=== PATIENT | male | born 1935 | race Caucasian/White ===

== ENCOUNTER → 2024-02-28 09:34 | Outpatient (REF) | payer MEDICARE, OTHER, SELFPAY ==
[2024-02-28 10:55] LABS: C-Reactive Protein < 5.00 mg/L (0.0-10.00)
[2024-03-01 17:11] LABS: SSA 52 (Ro)(ENA) Ab, IgG 15 AU/mL (0-40); SSA 60 (Ro)(ENA) Ab, IgG 0 AU/mL (0-40); SSB (La)(ENA) Ab, IgG 0 AU/mL (0-40)
== END ==
LOC: REG 09:34
PROVIDERS: ATTENDING PHYSICIAN Psychiatry & Neurology Neurology; FAMILY PHYSICIAN Family Medicine
DX: R26.9 Unspecified abnormalities of gait and mobility (principal)
CPT/HCPCS: 36415; 86041; 86140; 86235

== ENCOUNTER → 2024-03-03 07:54 | Outpatient (REF) | payer MEDICARE, OTHER, SELFPAY ==
[2024-03-03 09:00] LABS: Urine Albumin 1+ (Neg - Trace); Urine Bilirubin Negative (Negative); Urine Character Clear (Clear); Urine Color Yellow; Urine Glucose 3+ (Negative); Urine Ketone Negative (Negative); Urine Leukocyte Negative (Negative); Urine Nitrite Negative (Negative); Urine Occult Blood Negative (Negative); Urine Specific Gravity 1.015 (<1.030); Urine Urobilinogen Negative (Neg - 1+)
[2024-03-03 09:01] LABS: % Basophils 0.5 % (0-2); % Eosinophils 2.9 % (0-6); % Immature Granulocytes 0.7 % (0-0.5); % Lymphocytes 22.1 % (20.5-51.1); % Monocytes 11.5 % (1.7-9.3); % Neutrophils 62.3 % (42.2-75.2); Absolute Eosinophils 0.2 10^3/uL (0-0.7); Absolute Immature Granulocytes 0.1 10^3/uL (0-0.05); Absolute Lymphocytes 1.7 10^3/uL (1.2-3.4); Absolute Monocytes 0.9 10^3/uL (0.1-0.6); Absolute Neutrophils 4.8 10^3/uL (1.4-6.5); Hematocrit 41.6 % (39.0-52.0); Hemoglobin 13.4 g/dL (13.0-18.0); Mean Corp Hgb Conc. 32.2 g/dL (33.0-37.0); Mean Corpuscular Hgb 30.2 pg (27.0-31.0); Mean Corpuscular Volume 93.9 fL (80.0-94.0); Mean Platelet Volume 10.2 fL (7.4-10.4); Nucleated Red Blood Cells % 0 % (-); Platelet Count 209 10^3/uL (130-400); Red Blood Cell Count 4.43 10^6/uL (4.70-6.10); Red Cell Dist. Width 15.3 % (11.5-14.5); White Blood Cell Count 7.6 10^3/uL (4.8-10.8)
[2024-03-03 09:58] LABS: Glycohemoglobin (HgbA1c) 6.9 % (4.0-5.6)
[2024-03-03 10:22] LABS: ALT (SGPT) 19 U/L (0-50); AST (SGOT) 23 U/L (17-59); Alkaline Phosphatase 65 U/L (38-126); Blood Urea Nitrogen 36 mg/dl (9-20); Calcium 9.8 mg/dl (8.4-10.2); Carbon Dioxide 22 mmol/L (22-30); Chloride 104 mmol/L (98-107); Creatine Phosphokinase 33 U/L (55-170); Glucose 132 mg/dl (70-99); HDL Cholesterol 58 mg/dl; LDL Cholesterol, Calculated 57 mg/dl; Potassium 4.4 mmol/L (3.5-5.1); Sodium 134 mmol/L (135-145); Total Bilirubin 0.4 mg/dl (0.2-1.3); Total Cholesterol 142 mg/dl (50-199); Total Protein 6.4 g/dl (6.3-8.2); Triglyceride 137 mg/dl (10-149); Uric Acid 4.1 mg/dl (3.5-8.5); Very Low Density Lipoprotein 27 mg/dl (0-30); eGFR > 60.00
[2024-03-03 10:47] LABS: PSA, Total - Screen 1.51 ng/ml (0.0-4.0); TSH Reflex To Free T4 1.88 uIU/ml (0.47-4.68)
[2024-03-03 11:14] LABS: Urine Red Blood Cell None Seen /HPF (0-2); Urine Squamous Cell 0-2 /LPF (Few); Urine White Cell 0-2 /HPF (0-5)
== END ==
LOC: REG 07:54
PROVIDERS: ATTENDING PHYSICIAN Family Medicine
DX: Z90.5 Acquired absence of kidney (principal); M1A.9XX0 Chronic gout, unspecified, without tophus (tophi); E78.2 Mixed hyperlipidemia; E03.8 Other specified hypothyroidism; E11.42 Type 2 diabetes mellitus with diabetic polyneuropathy; R29.898 Other symptoms and signs involving the musculoskeletal system; Z12.5 Encounter for screening for malignant neoplasm of prostate
CPT/HCPCS: 36415; 80053; 80061; 81003; 81015; 82550; 83036; 84443; 84550; 85025; G0103

== ENCOUNTER 2024-03-14 08:11 | Outpatient (RCR) | payer MEDICARE, OTHER, SELFPAY | END 2024-03-14 23:59 | disposition home or self-care (01) | LOC: RPT 08:11 | PROVIDERS: ATTENDING PHYSICIAN Psychiatry & Neurology Neurology; FAMILY PHYSICIAN Family Medicine | DX: R26.89 Other abnormalities of gait and mobility (principal); Z73.6 Limitation of activities due to disability; R26.2 Difficulty in walking, not elsewhere classified | CPT/HCPCS: 97110; 97162 ==

== ENCOUNTER 2024-04-13 09:51 | Outpatient (RCR) | payer MEDICARE, OTHER, SELFPAY | END 2024-04-13 23:59 | disposition home or self-care (01) | LOC: RPT 09:51 | PROVIDERS: ATTENDING PHYSICIAN Psychiatry & Neurology Neurology; FAMILY PHYSICIAN Family Medicine | DX: R26.89 Other abnormalities of gait and mobility (principal); Z73.6 Limitation of activities due to disability; Z91.81 History of falling | CPT/HCPCS: 97110; 97112 ==

== ENCOUNTER 2024-05-15 09:30 | Outpatient (RCR) | payer MEDICARE, OTHER, SELFPAY | END 2024-05-15 12:15 | disposition home or self-care (01) | LOC: RPT 09:30 | PROVIDERS: ATTENDING PHYSICIAN Psychiatry & Neurology Neurology; FAMILY PHYSICIAN Family Medicine | DX: R26.89 Other abnormalities of gait and mobility (principal); Z73.6 Limitation of activities due to disability | CPT/HCPCS: 97110; 97112 ==

== ENCOUNTER → 2024-06-15 06:28 | Outpatient (REF) | payer MEDICARE, OTHER, SELFPAY ==
[2024-06-15 07:02] LABS: Hematocrit 42.6 % (39.0-52.0); Mean Corp Hgb Conc. 32.9 g/dL (33.0-37.0); Mean Corpuscular Hgb 29.2 pg (27.0-31.0); Mean Corpuscular Volume 88.8 fL (80.0-94.0); Platelet Count 215 10^3/uL (130-400); Red Cell Dist. Width 16.2 % (11.5-14.5); White Blood Cell Count 6.9 10^3/uL (4.8-10.8)
[2024-06-15 07:31] LABS: ALT (SGPT) 18 U/L (0-50); AST (SGOT) 24 U/L (17-59); Albumin 4.4 g/dl (3.5-5.0); Alkaline Phosphatase 65 U/L (38-126); Blood Urea Nitrogen 40 mg/dl (9-20); Calcium 10.1 mg/dl (8.4-10.2); Carbon Dioxide 26 mmol/L (22-30); Chloride 103 mmol/L (98-107); Glucose 124 mg/dl (70-99); HDL Cholesterol 48 mg/dl; LDL Cholesterol, Calculated 51 mg/dl; Potassium 4.7 mmol/L (3.5-5.1); Sodium 137 mmol/L (135-145); Total Bilirubin 0.5 mg/dl (0.2-1.3); Total Cholesterol 122 mg/dl (50-199); Total Protein 6.7 g/dl (6.3-8.2); Triglyceride 118 mg/dl (10-149); Very Low Density Lipoprotein 23 mg/dl (0-30); eGFR 58.53
[2024-06-15 08:03] LABS: TSH Reflex To Free T4 2.64 uIU/ml (0.47-4.68)
[2024-06-15 11:03] LABS: Glycohemoglobin (HgbA1c) 6.7 % (4.0-5.6)
== END ==
LOC: REG 06:28
PROVIDERS: ATTENDING PHYSICIAN Family Medicine
DX: N39.46 Mixed incontinence (principal); E11.9 Type 2 diabetes mellitus without complications; Z00.00 Encounter for general adult medical examination without abnormal findings; I25.10 Atherosclerotic heart disease of native coronary artery without angina pectoris; E03.9 Hypothyroidism, unspecified; E78.2 Mixed hyperlipidemia; G47.00 Insomnia, unspecified; E78.00 Pure hypercholesterolemia, unspecified
CPT/HCPCS: 36415; 80053; 80061; 81003; 81015; 83036; 84443; 85027

== ENCOUNTER → 2024-07-12 07:24 | Outpatient (REF) | payer MEDICARE, OTHER, SELFPAY | LOC: EMG 07:24 | PROVIDERS: ATTENDING PHYSICIAN Psychiatry & Neurology Neurology; FAMILY PHYSICIAN Family Medicine | DX: R26.9 Unspecified abnormalities of gait and mobility (principal); R20.0 Anesthesia of skin | CPT/HCPCS: 95886; 95912 ==

== ENCOUNTER 2024-09-20 13:43 | Outpatient (RCR) | payer MEDICARE, OTHER, SELFPAY | END 2024-09-20 23:59 | disposition home or self-care (01) | LOC: RPT 13:43 | PROVIDERS: ATTENDING PHYSICIAN Specialist; FAMILY PHYSICIAN Family Medicine | DX: N39.41 Urge incontinence (principal); Z73.6 Limitation of activities due to disability | CPT/HCPCS: 97110; 97161; 97530 ==

== ENCOUNTER → 2024-09-27 10:00 | Outpatient (REF) | payer MEDICARE, OTHER, SELFPAY | LOC: EMG 10:00 | PROVIDERS: ATTENDING PHYSICIAN Psychiatry & Neurology Neurology; FAMILY PHYSICIAN Family Medicine | DX: R26.9 Unspecified abnormalities of gait and mobility (principal); R20.0 Anesthesia of skin | CPT/HCPCS: 95886; 95908 ==

== ENCOUNTER 2024-10-13 11:20 | Outpatient (RCR) | payer MEDICARE, OTHER, SELFPAY | END 2024-10-13 13:14 | disposition home or self-care (01) | LOC: RPT 11:20 | PROVIDERS: ATTENDING PHYSICIAN Specialist; FAMILY PHYSICIAN Family Medicine | DX: N39.41 Urge incontinence (principal); Z73.6 Limitation of activities due to disability; R15.2 Fecal urgency; M62.81 Muscle weakness (generalized); R26.89 Other abnormalities of gait and mobility | CPT/HCPCS: 97110; 97530 ==

== ENCOUNTER 2024-10-24 01:23 | Inpatient (IN) | payer MEDICARE, OTHER, SELFPAY ==
[2024-10-23] VITALS (8 sets, daily range): BP systolic 90–107; BP diastolic 39–63; BMI 25.4
[2024-10-23 17:42] LABS: % Basophils 0.2 % (0-2); % Eosinophils 1.6 % (0-6); % Immature Granulocytes 0.6 % (0-0.5); % Lymphocytes 2.7 % (20.5-51.1); % Monocytes 8.4 % (1.7-9.3); % Neutrophils 86.5 % (42.2-75.2); Absolute Eosinophils 0.2 10^3/uL (0-0.7); Absolute Immature Granulocytes 0.1 10^3/uL (0-0.05); Absolute Lymphocytes 0.4 10^3/uL (1.2-3.4); Absolute Monocytes 1.3 10^3/uL (0.1-0.6); Mean Corp Hgb Conc. 34.9 g/dL (33.0-37.0); Mean Corpuscular Hgb 30.9 pg (27.0-31.0); Mean Corpuscular Volume 88.7 fL (80.0-94.0); Mean Platelet Volume 9.7 fL (7.4-10.4); Nucleated Red Blood Cells % 0 % (-); Platelet Count 168 10^3/uL (130-400); Red Blood Cell Count 4.85 10^6/uL (4.70-6.10); Red Cell Dist. Width 15.8 % (11.5-14.5)
[2024-10-23 17:49] LABS: ALT (SGPT) 22 U/L (0-50); AST (SGOT) 28 U/L (17-59); Albumin 3.7 g/dl (3.5-5.0); Alkaline Phosphatase 68 U/L (38-126); Blood Urea Nitrogen 32 mg/dl (9-20); Carbon Dioxide 21 mmol/L (22-30); Chloride 93 mmol/L (98-107); Glucose 168 mg/dl (70-99); Potassium 4.4 mmol/L (3.5-5.1); Sodium 127 mmol/L (135-145); Total Bilirubin 0.5 mg/dl (0.2-1.3); Total Protein 6.2 g/dl (6.3-8.2); eGFR 58.53
[2024-10-23 17:54] LABS: COVID-19 Antigen Negative (Negative)
[2024-10-23] MEDS: TYLENOL 1000 MG PO (20:11)
[2024-10-23] MEDS: NSS 1000 IV (20:11)
[2024-10-23 20:40] LABS: Lactic Acid 1.4 mmol/L (0.7-2.0)
--- NOTE | 2024-10-23 20:52 | ED.GENMED ---
History of Present Illness
General
Chief Complaint: Fever
Time Seen by Provider: 10/23/24 19:14
History of Present Illness
History of Present Illness:
88-year-old male with history of diabetes, CAD, hyperlipidemia presenting for weakness and fever. Patient presents with daughter who lives with him. He had an unwitnessed fall earlier this morning, found on the ground and patient could not get up.
For the past 3 days patient has been running a fever, over 103 today. He had Tylenol earlier this afternoon. Patient himself without specific complaints. Denies chest pain, difficulty breathing, cough. No known sick contacts, however was around
a lot of family for Thanksgiving and has had some loose stools. Denies abdominal pain or vomiting. Denies urinary complaints. He is unsure whether or not he struck his head when he fell, is not on blood thinners. Denies additional acute medical
complaints
Past History
Past History
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
ED Past Surgical History: Cardiac (Coronary bypass graft), Orthopedic (Right shoulder surgery, bilateral rotator cuff repair, leg surgery), Urological (Right nephrectomy due to benign mass) and Other (Adrenal tumor removed, )
Social History
Tobacco: Former smoker
Alcohol: None
Drug: None
Personal:
Living: with family
Family History
Family History: Other (Reviewed and noncontributory)
Phy Exam
Physical Exam
Physical Exam:
General: Well-appearing, no clinical signs of dehydration, nontoxic and in no acute distress
HEENT: protecting airway
Neck: appears supple
CV: Normal heart rate, regular rhythm
Resp: No accessory muscle use, no increased work of breathing, lungs clear to auscultation bilaterally
Abd: Soft and non-distended, no tenderness to palpation
Extremities: No deformities, no swelling, no erythema
Neuro: alert, no focal neurologic deficit
: deferred
Rectal: deferred
Psych: Normal affect
Skin: Intact
Course
Orders/Labs/Results
Orders:
Orders
10/23/24 17:08
Electrocardiogram (*1) Urgent
Reason for Study: Shortness of Breath
EKG- Treatment ONCE
10/23/24 17:22
COVID-19 Antigen Urgent
Source: Nasal Swab
Complete Blood Count/With Diff Urgent
Comprehensive Metabolic Panel Urgent
Influenza A+B Rapid Molecular Urgent
JAKOB Source: Nasal Swab
Specimen Description:
10/23/24 19:52
0.9% Sodium Chloride 1000 ml [Nss] 1,000 ml IV BOLUS
Acetaminophen [Tylenol] 1,000 mg PO NOW STA
10/23/24 19:53
CR Chest - 2 Views Urgent
Comment:
Reason For Exam: fever
10/23/24 19:54
CT Head W/o Iv Contrast Urgent
Comment:
Reason For Exam: unwitnessed fall
10/23/24 20:21
Lactic Acid Q4H
Comment: CANCEL 2nd LACTIC ACID IF 1st LACTIC ACID IS LESS THAN 2
10/23/24 20:22
Blood Culture Q30M
JAKOB Source: Blood/Venous
Specimen Description:
Blood Culture Q30M
JAKOB Source: Blood/Venous
Specimen Description:
10/23/24 20:58
Urinalysis Reflex To Culture Urgent
10/24/24 00:00
Lactic Acid Q4H
Comment: CANCEL 2nd LACTIC ACID IF 1st LACTIC ACID IS LESS THAN 2
Abnormal Lab Results
10/23/24
17:22
WBC 15.0 H 10^3/uL
(4.8-10.8)
RDW 15.8 H %
(11.5-14.5)
Abs Immat Gran (auto) 0.1 H 10^3/uL
(0-0.05)
Absolute Neuts (auto) 13.0 H 10^3/uL
(1.4-6.5)
Absolute Lymphs (auto) 0.4 L 10^3/uL
(1.2-3.4)
Absolute Monos (auto) 1.3 H 10^3/uL
(0.1-0.6)
Immature Gran % 0.6 H %
(0-0.5)
Neutrophils % 86.5 H %
(42.2-75.2)
Lymphocytes % 2.7 L %
(20.5-51.1)
Sodium 127 L mmol/L
(135-145)
Chloride 93 L mmol/L
(98-107)
Carbon Dioxide 21 L mmol/L
(22-30)
BUN 32 H mg/dl
(9-20)
Glucose 168 H mg/dl
(70-99)
Total Protein 6.2 L g/dl
(6.3-8.2)
10/23/24 17:22
10/23/24 17:22
Vital Signs
Initial and Last Documented VS:
Initial Vital Signs
Temp Pulse Resp BP Pulse Ox
98.3 F 82 16 98/63 94
10/23/24 17:03 10/23/24 17:03 10/23/24 17:03 10/23/24 17:03 10/23/24 17:03
Last Documented Vital Signs
Temp Pulse Resp BP Pulse Ox
99.5 F 79 19 102/43 94
10/23/24 19:00 10/23/24 20:15 10/23/24 20:15 10/23/24 20:00 10/23/24 20:00
MDM/Problems Addressed
MDM/Problems Addressed:
88-year-old male with history of CAD, diabetes, hypertension presenting for weakness, fever, fall.
Vitals on arrival are significant for low-grade fever and low blood pressure. Symptoms concerning for systemic infection, meeting SIRS criteria. Patient had laboratory analysis obtained prior to my assessment, leukocytosis. Patient also with
hyponatremia, suspected dehydration. Unclear source of infection, patient without any specific complaints. Will add lactic acid, blood cultures, start IV fluids, Tylenol for fever. Will send urinalysis, chest x-ray. Unwitnessed fall, patient
unsure if he struck his head. Will plan for CT brain imaging as well
*EKG
Interpreted by ED Provider?: Yes
EKG Intrepretation Date: 10/23/24
EKG Intrepretation Time: 21:03
Interpretation: abnormal
Comparison EKG: changes noted
Heart Rate: 77
Rate: normal
Rhythm: sinus
Felt: left axis deviation
Interval: normal interval
QRS Pattern: left bundle branch block
Ischemia: non-specific ST changes
*Critical Care Note
Total Time (30-74mins, 75-104mins- exclusive of procedures): Not Applicable
ED Attending Note
-
Portions of this chart may have been created with voice recognition software.� Occasional wrong word or��sound alike� substitutions may have occurred due to the inherent limitations of voice recognition software.
Discharge Plan
Departure
Prescriptions:
No Action
allopurinol 100 MG tablet
100 mg PO BID
simvastatin 40 MG tablet
40 mg PO QPM
metformin 500 mg Tablet
500 mg PO BID
levothyroxine 50 mcg Tablet
50 mcg PO DAILY
aspirin 81 mg Tablet,Chewable
81 mg PO DAILY Qty: 30 0RF
carvedilol 12.5 mg Tablet
25 mg PO BID Qty: 60 0RF
multivitamin Tablet
1 tab PO DAILY
temazepam 30 mg Capsule
30 mg PO HS PRN (Reason: insomnia)
vitamin B complex [Super B Complex] Tablet
1 tab PO DAILY
lisinopril 5 mg Tablet
5 mg PO DAILY
Osteo Bi-Flex Triple Strength 750 mg-644 mg- 30 mg-1 mg Tablet
1 tab PO DAILY
Interventions
Interventions:
*Risk Screen - Suicide Last Done: 10/23/24 17:08
*Neglect/Abuse Screening Last Done: 10/23/24 17:08
ED- Neurological Assessment Last Done: 10/23/24 19:23
ED-Skin Assessment Last Done: 10/23/24 19:23
Discharge Date and Time
Print Language: CHILEAN
[2024-10-23 21:49] LABS: Urine Albumin 2+ (Neg - Trace); Urine Bilirubin Negative (Negative); Urine Character Clear (Clear); Urine Color Yellow; Urine Glucose 3+ (Negative); Urine Ketone Negative (Negative); Urine Leukocyte Negative (Negative); Urine Nitrite Negative (Negative); Urine Occult Blood Negative (Negative); Urine Specific Gravity 1.015 (<1.030); Urine Urobilinogen Negative (Neg - 1+)
[2024-10-23 22:28] LABS: Urine Amorphous Seen; Urine Bacteria Moderate (Negative); Urine Mucus Few; Urine Red Blood Cell 0-2 /HPF (0-2)
[2024-10-23] MEDS: ZOSYN 100 IV (22:39)
[2024-10-24] VITALS (20 sets, daily range): BP systolic 87–166; BP diastolic 47–94; BMI 24.4
--- NOTE | 2024-10-24 01:15 | HPS.HSE ---
Family Physician
-
Family Physician: Tyesha Mock
Chief Complaint
-
Fever, Weakness
History of Present Illness
Patient is an 88y M with PMH significant for ASCVD, DM-II and pulmonary fibrosis who presents to ED complaining of fever and weakness. Patient states that he has been having issues with unsteady gait and falling for some time now. He notes
specifically weakness in the RLE and states that he was recently found to have severe neuropathy / atrophy in the extremity. Over the past few days, patient has felt more weak than usual. He had a fever at home reportedly to 103 and presented to
the ED for evaluation.
Patient reports shortness of breath with activity - which is chronic and unchanged from his baseline.
He denies any sore throat, cough, abd pain, N/V/D or urinary complaints.
He denies any known sick contacts, recent travel, etc.
Medical History
Past Medical History
Past Medical History: Reports Other
Additional Past Medical History:
ASCVD
Hypertension
Ischemic Cardiomyopathy (LVEF = 35%)
DM-II with Neuropathy
Benign Renal Mass
Hypothyroidism
Gout
Pulmonary Fibrosis
Past Surgical History: Reports Other
Additional Past Surgical History:
CABG (2010)
Right Nephrectomy
RLE ORIF
Social History
Tobacco: Former Smoker (Quit 25 years ago. Approx 40 pack years total use.)
Alcohol: None
Drug: None
Family History
Family History: Other (Mother: CAD Father: CHF Brother: Lung Cancer)
Allergies / Home Medications
Allergies reflects when Allergies were last updated in [employer].
Home Medications with original date entered in [employer]
Allergy/Medication List:
Allergies
Allergy/AdvReac Type Severity Reaction Status Date / Time
No Known Allergies Allergy Verified 12/21/22 18:51
Home Medications
allopurinol 100 mg tablet 100 mg PO BID Gout 02/11/11
simvastatin 40 mg tablet 40 mg PO QPM High cholesterol 02/11/11
aspirin 81 mg chewable tablet 81 mg PO MOWEFR@1800 10/23/24
carvedilol 6.25 mg tablet 6.25 mg PO BID 10/23/24
cholecalciferol (vitamin D3) 25 mcg (1,000 unit) tablet (Vitamin D3) 25 mcg PO DAILY 10/23/24
empagliflozin 10 mg tablet (Jardiance) 10 mg PO DAILY 10/23/24
hydralazine 10 mg tablet 10 mg PO TID 10/23/24
isosorbide mononitrate 30 mg tablet,extended release 24 hr 30 mg PO DAILY 10/23/24
levothyroxine 75 mcg tablet 75 mcg PO DAILY 10/23/24
metformin 500 mg tablet,extended release 24 hr 500 mg PO TID 10/23/24
therapeutic multivitamin 1 tab PO DAILY 10/23/24
vibegron 75 mg tablet (Gemtesa) 75 mg PO DAILY 10/23/24
Review of Systems
-
History Source: Patient
A 12 point ROS was completed and negative except as noted: Yes
Constitutional: Reports Fever, Fatigue and Chills
EENT: Denies Sore Throat
Respiratory: Reports Trouble Breathing; Denies Cough
Cardiac: Denies Chest Pain or Palpitations
Abdomen/GI: Denies Abdominal Pain, Nausea, Vomiting or Diarrhea
: Denies Dysuria, Frequency or Flank Pain
Neurological: Reports Weakness; Denies Dizzy or Headache
Psych: Denies Depression or Anxiety
Physical Exam
Vital Signs
Vital Signs
Temp Pulse Resp BP Pulse Ox
99.5 F 79 19 102/43 94
10/23/24 19:00 10/23/24 20:15 10/23/24 20:15 10/23/24 20:00 10/23/24 20:00
Physical Exam
General: Other (88y M in no acute distress.)
HEENT: Moist mucous membranes and PERRLA
Respiratory: Other (bibasilar rales about 1/3 up. No wheeze / rhonchi.)
Cardiac: S1/S2, Regular Rhythm and Murmur (II/ ZEUS)
GI: Soft, Non Tender, Non Distended and Normal Bowel Sounds
Musculoskeletal: No Clubbing, No Cyanosis and No Edema
Neuro: Awake, Alert and Nonfocal/grossly intact
Laboratory Results
-
10/23/24 17:22
10/23/24 17:22
Laboratory Results
Lactic Acid 1.4 mmol/L (0.7-2.0) 10/23/24 20:21
Total Bilirubin 0.5 mg/dl (0.2-1.3) 10/23/24 17:22
AST 28 U/L (17-59) 10/23/24 17:22
ALT 22 U/L (0-50) 10/23/24 17:22
Alkaline Phosphatase 68 U/L (38-126) 10/23/24 17:22
Impression/Plan
-
A/P: Patient is an 88y M with PMH significant for ASCVD, DM-II and pulmonary fibrosis who presents to ED complaining of fever and weakness.
Fever
- Admit for further evaluation and treatment.
- No focal symptoms and evaluation in the ED thus far (CT head, CXR, COVID / Flu, UA, etc) has been unrevealing.
- Will observe off of further abx for now pending positive culture data, changes in symptoms, recurrent fever, etc.
- Follow temperature curve.
Weakness
Ambulatory Dysfunction
Peripheral Neuropathy
- Patient with ongoing issues with gait dysfunction due to RLE weakness / chronic atrophy and neuropathy.
- These issues exacerbated by acute illness / fever - ? viral syndrome.
- PT / OT evaluations.
- Follow for any new / worsening symptoms.
Hyponatremia
- Na = 127 seems most likely due to hypovolemia - though no specific GI / losses, etc
- IVFs overnight and follow for any changes.
- Urine studies pending.
Pulmonary Fibrosis
- Rales on exam c/w fibrosis. CXR with no acute pathology.
- Not hypoxemic.
- Patient reports chronic dyspnea, but no acute change in symptoms.
- Follow for any changes.
ASCVD
Ischemic Cardiomyopathy
- Stable. No evidence of volume overload on exam and patient is not chronically on diuretic.
- Continue current CV med regimen.
- Follow I/Os, daily weights, etc.
DM-II with Severe Peripheral Neuropathy
- Stable. Hold PO medications acutely including Jardiance and Metformin.
- SSI coverage for now if needed.
- Update A1C.
Hypothyroidism
- Continue current T4 dose for now.
- Update TFTs.
Solitary Kidney
- s/p R nephrectomy for benign tumor.
- SCr increased from baseline (1.2 from 0.8).
- Follow for changes / return to baseline.
DVT Prophylaxis: Subcut Heparin
Code Status: Full
[2024-10-24 01:21] LABS: Osmolality Urine 551 mOsm/kg (300-900)
[2024-10-24 01:27] LABS: Urine Sodium 15 mmol/L (30-90)
[2024-10-24] MEDS: NSS 1000 IV (03:00)
[2024-10-24 06:35] LABS: Hematocrit 47.6 % (39.0-52.0); Hemoglobin 16.4 g/dL (13.0-18.0); Mean Corp Hgb Conc. 34.5 g/dL (33.0-37.0); Mean Corpuscular Hgb 31.1 pg (27.0-31.0); Mean Corpuscular Volume 90.3 fL (80.0-94.0); Mean Platelet Volume 10.2 fL (7.4-10.4); Platelet Count 163 10^3/uL (130-400); Red Blood Cell Count 5.27 10^6/uL (4.70-6.10); Red Cell Dist. Width 15.8 % (11.5-14.5); White Blood Cell Count 14.3 10^3/uL (4.8-10.8)
[2024-10-24 07:08] LABS: Blood Urea Nitrogen 30 mg/dl (9-20); Carbon Dioxide 19 mmol/L (22-30); Chloride 96 mmol/L (98-107); Estimated Creatinine Clearance 42 ml/min; Glucose 155 mg/dl (70-99); Potassium 4.4 mmol/L (3.5-5.1); Sodium 133 mmol/L (135-145); eGFR 58.53
[2024-10-24] MEDS: SYNTHROID 75 MCG PO (07:32)
[2024-10-24 07:39] LABS: Glucose - Point of Care 180 mg/dl (70-99)
[2024-10-24] MEDS: COREG 6.25 MG PO (08:16)
[2024-10-24] MEDS: HEPARIN 5000 UNITS SC (08:16)
[2024-10-24] MEDS: ZYLOPRIM 100 MG PO ×2 (08:16→20:56)
[2024-10-24] MEDS: NOVOLOG FLEXPEN-LOW RESISTANCE 1 UNITS SC ×2 (08:16→18:24)
--- NOTE | 2024-10-24 08:28 | PTCARENOTE ---
Pt restless, [place], crackles R side 1/2, L base. 94% on RA. Oriented to place and year but forgetful and impulsive. Denies pain, reports SOB but states he always feels this way. IVFs stopped. DR Zarco notified, to come evaluate soon. HR 114, ST w/
BBB. BP 157/94. Temp 99.2. Morning meds given.
[2024-10-24 08:58] LABS: Glycohemoglobin (HgbA1c) 6.8 % (4.0-5.6)
[2024-10-24] MEDS: STERILE WATER FOR INJECTION 10 ML IV (10:45)
[2024-10-24] MEDS: ROCEPHIN 1000 MG IV (10:45)
[2024-10-24 11:30] LABS: NT-proBNP 22000 pg/ml
[2024-10-24] MEDS: ZOFRAN 4 MG IV (11:45)
[2024-10-24 11:49] LABS: Glucose - Point of Care 281 mg/dl (70-99)
[2024-10-24] MEDS: TYLENOL 650 MG PO (12:24)
[2024-10-24] MEDS: NOVOLOG FLEXPEN-LOW RESISTANCE SC (14:05)
--- NOTE | 2024-10-24 14:48 | W.PN.HOSP.TC ---
Today's Communication/Plan
-
zosyn, f/u mrsa pcr
f/u urine/blood cultures
trend cbc, fever curve
monitor na
monitor mental status with resuscitation
Assessment / Plan
Assessment / Plan
Physical Exam
General: Other (88y M in no acute distress albeit confused)
HEENT: Moist mucous membranes and PERRLA
Respiratory: Other (bibasilar rales about 1/3 up. No wheeze / rhonchi.)
Cardiac: S1/S2, Regular Rhythm and Murmur (II/ ZEUS)
GI: Soft, Non Tender, Non Distended and Normal Bowel Sounds
Musculoskeletal: No Clubbing, No Cyanosis and No Edema
Neuro: Awake, Alert and Nonfocal/grossly intact
A/P: Patient is an 88y M with PMH significant for ASCVD, DM-II and pulmonary fibrosis who presents to ED complaining of fever and weakness.
Sepsis
-unclear etiology, possible UTI
-Cont ceftriaxone for now
-CT chest without evidence of infectious etiology
-F/u blood cultures, urine cultures
Weakness
Acute metabolic encephalopathy
� Most likely secondary to sepsis
� Continue to monitor with resuscitation
� Head CT unremarkable
Ambulatory Dysfunction
Peripheral Neuropathy
- Patient with ongoing issues with gait dysfunction due to RLE weakness / chronic atrophy and neuropathy.
- These issues exacerbated by acute illness / fever - ? viral syndrome.
- PT / OT evaluations.
- Follow for any new / worsening symptoms.
Hyponatremia, improved
- Na = 127 seems most likely due to hypovolemia - though no specific GI / losses, etc
- IVFs overnight and now can stop due to crackles, worsening respiratory status
- Continue to trend
Pulmonary Fibrosis
- Rales on exam c/w fibrosis. CXR with no acute pathology.
- Not hypoxemic.
- Patient reports chronic dyspnea, but no acute change in symptoms.
- Follow for any changes.
ASCVD
Ischemic Cardiomyopathy
- Stable. No evidence of volume overload on exam and patient is not chronically on diuretic.
- Continue current CV med regimen.
- Follow I/Os, daily weights, etc.
DM-II with Severe Peripheral Neuropathy
- Stable. Hold PO medications acutely including Jardiance and Metformin.
- SSI coverage for now if needed.
- Update A1C.�6.8
Hypothyroidism
- Continue current T4 dose for now.
- Update TFTs.
Solitary Kidney
- s/p R nephrectomy for benign tumor.
- SCr increased from baseline (1.2 from 0.8).
- Follow for changes / return to baseline.
DVT Prophylaxis: Subcut Heparin
Code Status: Full
Total time spent on today's encounter was 50 minutes which included time spent in counseling the patient/family regarding diagnosis and treatment plan as listed above, goals of care, and symptom management. Case was discussed with nursing staff,
specialists, and care coordinators/case management. All labs and imaging personally reviewed by me. Remainder the time spent in detailed review of previous records, lab data, imaging, and other medical provider documentation.
Anticipated Discharge: > 48 hours
Subjective/Interval History
-
Date of Service: October 24, 2024
confused
Objective Data
-
Labs:
Laboratory Results
10/24/24
05:59
WBC 14.3 H
Hgb 16.4
Hct 47.6
Plt Count 163
Sodium 133 L
Potassium 4.4
Chloride 96 L
Carbon Dioxide 19 L
BUN 30 H
Creatinine 1.2
Glucose 155 H
Calcium 9.0
Vital Signs:
Vital Signs
Temp Pulse Resp BP Pulse Ox
101.4 F H 99 26 97/66 92
10/24/24 12:21 10/24/24 12:23 10/24/24 12:23 10/24/24 12:23 10/24/24 12:26
I&O
10/23/24 10/24/24 10/25/24
06:59 06:59 06:59
Intake Total 840 / 840 490 / 490
Output Total 300 / 300
Balance 540 / 540 490 / 490
Review of Systems
-
Unable to obtain full review of systems at this time due to: Acuity
History Source: Patient
All other systems: Not reviewed unless documented
Data Reviewed
-
Diagnostic Radiology: Report Reviewed by me
CT Scan: Report Reviewed by me
Labs: Labs Reviewed by me
[2024-10-24] MEDS: ZOSYN 100 IV ×2 (15:46→23:29)
[2024-10-24 16:31] LABS: TSH Reflex To Free T4 1.37 uIU/ml (0.47-4.68)
[2024-10-24] MEDS: LIPITOR 10 MG PO (17:46)
[2024-10-24 18:07] LABS: Glucose - Point of Care 179 mg/dl (70-99)
--- NOTE | 2024-10-24 20:00 | PTCARENOTE ---
Pt arrived to unit from ED and ambulated with x1 assist from stretcher to bed. Pt is AAOx3 but forgetful at times. Bed alarm in place. Family and patient updated on plan of care. BP on admission 98/55; evening dose of carvedilol held per order.
Pt oriented to room with call leonardo within reach.
[2024-10-24] MEDS: COREG PO (20:46)
[2024-10-24] MEDS: HEPARIN SC ×2 (20:50→20:56)
[2024-10-24] MEDS: ZYLOPRIM PO ×2 (20:50→20:56)
[2024-10-24 22:58] LABS: Glucose - Point of Care 151 mg/dl (70-99)
[2024-10-25] VITALS (8 sets, daily range): BP systolic 95–126; BP diastolic 51–73; PULSE 63–91; O2SAT 96–97; BMI 24.1
[2024-10-25] MEDS: ZOSYN 100 IV ×4 (04:26→21:05)
[2024-10-25] MEDS: SYNTHROID 75 MCG PO (06:24)
[2024-10-25 07:31] LABS: Glucose - Point of Care 142 mg/dl (70-99)
[2024-10-25 08:55] LABS: Hematocrit 44.1 % (39.0-52.0); Hemoglobin 15.3 g/dL (13.0-18.0); Mean Corp Hgb Conc. 34.7 g/dL (33.0-37.0); Mean Corpuscular Hgb 31.5 pg (27.0-31.0); Mean Corpuscular Volume 90.7 fL (80.0-94.0); Mean Platelet Volume 10.7 fL (7.4-10.4); Platelet Count 148 10^3/uL (130-400); Red Blood Cell Count 4.86 10^6/uL (4.70-6.10)
[2024-10-25] MEDS: NOVOLOG FLEXPEN-LOW RESISTANCE SC ×2 (09:39→17:13)
[2024-10-25] MEDS: STERILE WATER FOR INJECTION IV (09:40)
[2024-10-25 09:47] LABS: ALT (SGPT) 29 U/L (0-50); AST (SGOT) 37 U/L (17-59); Albumin 3.6 g/dl (3.5-5.0); Alkaline Phosphatase 66 U/L (38-126); Blood Urea Nitrogen 32 mg/dl (9-20); Carbon Dioxide 21 mmol/L (22-30); Chloride 98 mmol/L (98-107); Estimated Creatinine Clearance 36 ml/min; Glucose 182 mg/dl (70-99); Potassium 3.4 mmol/L (3.5-5.1); Sodium 136 mmol/L (135-145); Total Bilirubin 0.5 mg/dl (0.2-1.3); Total Protein 6.1 g/dl (6.3-8.2); eGFR 48.65
[2024-10-25] MEDS: HEPARIN SC ×2 (09:47→20:18)
[2024-10-25] MEDS: COREG 6.25 MG PO (09:47)
[2024-10-25] MEDS: ZYLOPRIM 100 MG PO ×2 (09:47→20:13)
[2024-10-25 11:16] LABS: Glucose - Point of Care 242 mg/dl (70-99)
[2024-10-25] MEDS: NOVOLOG FLEXPEN-LOW RESISTANCE 2 UNITS SC (12:09)
--- NOTE | 2024-10-25 15:16 | W.PN.HOSP.TC ---
Today's Communication/Plan
-
Add on probnp; Received IV lasix yesterday for crackles with fluids; ECHo: EF 30% - new as per records - f/u Cards recs
Cont empiric abx, f/u cultures
weaned off o2
Assessment / Plan
Assessment / Plan
Physical Exam
General: Other (88y M in no acute distress albeit confused)
HEENT: Moist mucous membranes and PERRLA
Respiratory: Other (bibasilar rales about 1/3 up. No wheeze / rhonchi.)
Cardiac: S1/S2, Regular Rhythm and Murmur (II/ ZEUS)
GI: Soft, Non Tender, Non Distended and Normal Bowel Sounds
Musculoskeletal: No Clubbing, No Cyanosis and No Edema
Neuro: Awake, Alert and Nonfocal/grossly intact
A/P: Patient is an 88y M with PMH significant for ASCVD, DM-II and pulmonary fibrosis who presents to ED complaining of fever and weakness.
Sepsis
-unclear etiology, possibly viral
-Cont ceftriaxone for now
-CT chest without evidence of infectious etiology
-F/u blood cultures,
� Urine cultures negative
Weakness
Acute metabolic encephalopathy, resolved
� Most likely secondary to viral illness�now resolved
� Continue to monitor with resuscitation
� Head CT unremarkable
Ambulatory Dysfunction
Peripheral Neuropathy
- Patient with ongoing issues with gait dysfunction due to RLE weakness / chronic atrophy and neuropathy.
- These issues exacerbated by acute illness / fever - ? viral syndrome.
- PT / OT evaluations.
- Follow for any new / worsening symptoms.
ASCVD
Ischemic Cardiomyopathy
Acute HFrEF
� Required IV Lasix on admission
�Add on proBNP
� Echo with EF of 30%
� Cardiology consulted
- Continue current CV med regimen.
- Follow I/Os, daily weights, etc.
Hyponatremia, improved
- Na = 127 seems most likely due to hypovolemia - though no specific GI / losses, etc
- IVFs overnight and now can stop due to crackles, worsening respiratory status
- Continue to trend
Pulmonary Fibrosis
- Rales on exam c/w fibrosis. CXR with no acute pathology.
- Not hypoxemic.
- Patient reports chronic dyspnea, but no acute change in symptoms.
- Follow for any changes.
DM-II with Severe Peripheral Neuropathy
- Stable. Hold PO medications acutely including Jardiance and Metformin.
- SSI coverage for now if needed.
- Update A1C.�6.8
Hypothyroidism
- Continue current T4 dose for now.
- Update TFTs.
Solitary Kidney
- s/p R nephrectomy for benign tumor.
- SCr increased from baseline (1.2 from 0.8).
- Follow for changes / return to baseline.
DVT Prophylaxis: Subcut Heparin
Code Status: Full
Total time spent on today's encounter was 55 minutes which included time spent in counseling the patient/family regarding diagnosis and treatment plan as listed above, goals of care, and symptom management. Case was discussed with nursing staff,
specialists, and care coordinators/case management. All labs and imaging personally reviewed by me. Remainder the time spent in detailed review of previous records, lab data, imaging, and other medical provider documentation.
Anticipated Discharge: Within 24 hours
Subjective/Interval History
-
Date of Service: October 25, 2024
Feels better today
Objective Data
-
Labs:
Laboratory Results
10/25/24
07:53
WBC 10.0
Hgb 15.3
Hct 44.1
Plt Count 148
Sodium 136
Potassium 3.4 L
Chloride 98
Carbon Dioxide 21 L
BUN 32 H
Creatinine 1.4 H
Glucose 182 H
Calcium 9.0
Total Bilirubin 0.5
AST 37
ALT 29
Alkaline Phosphatase 66
Vital Signs:
Vital Signs
Temp Pulse Resp BP Pulse Ox
97.8 F 84 16 95/51 98
10/25/24 11:02 10/25/24 11:02 10/25/24 11:02 10/25/24 11:02 10/25/24 11:02
I&O
10/24/24 10/25/24 10/26/24
06:59 06:59 06:59
Intake Total 840 / 840 1820 / 1820 400 / 400
Output Total 300 / 300 475 / 475
Balance 540 / 540 1345 / 1345 400 / 400
Review of Systems
-
History Source: Patient
All other systems: Not reviewed unless documented
Physical Exam
-
General: Well Developed, Well Nourished, No Apparent Distress, Comfortable and Conversant; Negative Respiratory Distress or Slurred Speech
HEENT: Normocephalic, Atraumatic, Nose Appears Normal and Ears Appear Normal; Negative Oxygen
Respiratory: Clear to Auscultation and Non Labored Respirations; Negative Accessory Resp Muscle Use
Cardiac: Regular Rhythm and S1/S2
GI: Soft, Nontender, Nondistended and Normal Bowel Sounds
Musculoskeletal: Normal Gait & Station
Skin: Warm and Dry
Neuro: Awake, Alert, Oriented, AO x 3 and No Motor Deficits; Negative Slurred Speech or Facial Droop
Psych: Calm and Intact Judgement/Insight
Data Reviewed
-
Diagnostic Radiology: Report Reviewed by me
CT Scan: Report Reviewed by me
Labs: Labs Reviewed by me
--- NOTE | 2024-10-25 15:38 | CM ---
Patient seen at bedside
IA completed
Dx: weakness, sepsis, possible uti
PMH: ASCVD, DMII, pulmonary fibrosis, ischemic cardiomyopathy
Lives with daughter Concha in a multi-story home, 1 step to enter (through garage), flight of steps to second floor
PLOF: ambulates with RW
DME: walker, cane, shower chair
Denies VN in past, states has had outpatient therapy
PT/OT rec outpatient therapy
PCP: Tyesha Mock
Pharmacy: [facility]
PLAN: PT rec outpatient therapy (need script)
--- NOTE | 2024-10-25 15:46 | CON.CAR ---
Addendum entered and electronically signed by Jag Grijalva MD 10/25/24 16:43:
I saw and examined the patient.
The VE TEACHER or PA's note was reviewed and I agree with the note.
Comment: General: Well developed, well nourished in NAD.
Neck: Supple, no JVD, HJR, carotids +2 B/L, no bruits bilaterally.
Heart: Non displaced PMI, RRR, no murmurs, No S3, S4, no rubs.
Lungs: Scattered rhonchi
Extremities: No clubbing, cyanosis or edema bilaterally.
Neuro: Grossly nonfocal, awake, alert and oriented x3.
Keo has a history of cardiomyopathy ejection fraction 37% in August 2023, CAD status post CABG with MANZANO to LAD and vein graft to OM, left bundle branch block, hypertension, lipidemia, peripheral neuropathy. He had a fall at home and was
admitted with weakness. He also had a temperature of 103 at home. Cardiology consulted for ejection fraction of 30%.
There are no signs or symptoms of CHF. He is already on Coreg. Ejection fraction is similar to prior number and would not record changer tester at the current time. Will sign off, call with questions. Jardiance has been resumed
Original Note:
Consultation
Consultation Request
Date/Time Consultation Requested: 10/25/24
Date/Time Consultation Performed: 10/25/24
Requesting Provider: Dr. Zarco
Performing Provider: Dr. Grijalva
Reason for Consultation: CM
Medical History
-
History of Present Illness:
Patient came to ER on Wednesday after a fall at home and fever and cardiology is now consulted for an abnormal echo. Patient lives at home with his daughter and he started to feel unwell beginning on the Wednesday after Thanks. He felt
increasingly unwell on Wednesday and then Wednesday was weaker than usual and had trouble getting up and moving around on his own. He had started with a fever and had a temperature up to 103 �F at home. On Wednesday he had a fall at home and was unable
to get up on his own, the fall was unwitnessed but no reports of syncope. The patient does not normally have a fever and is normally very sharp and despite his chronic peripheral neuropathy is independent with ADLs. His family brought him to ER
and he was febrile and was admitted. His WBC count was elevated on admission, but CXR was unremarkable. He had a CT of the head that was unremarkable. A follow-up CT of the chest was performed yesterday and again no acute disease of the chest.
For an unknown reason his proBNP level was checked and was 22,000 without reports of shortness of breath or edema. Repeat echo was performed yesterday and his EF that was previously closer to 37% was reduced at 30%. Patient has a known ischemic
cardiomyopathy with a history of CABG. He is currently laying supine in bed without any dyspnea. He says overall he feels better following antibiotics since admission and feels much clear mentally today.
PMH:
Peripheral neuropathy
ICM EF was 37% by echo 09/02/23 and now 30%
CAD s/p CABG with MANZANO to LAD and SVG to OM
cLBBB
HTN
Hyperlipidemia
Past Medical History
Past Medical History: Other (in HPI)
Past Surgical History: Cardiac (s/p CABG), Orthopedic and Other (right nephrectomy for benign mass 1983)
Social History
Tobacco: Former Smoker
Alcohol: Occasional
Drug: None
Living: With Family (lives with his daughter)
Family History
Family History: CAD and Cancer
Allergies / Home Medications
Allergy/AdvReac Type Severity Reaction Status Date / Time
No Known Allergies Allergy Verified 12/21/22 18:51
�Medication �Instructions �Recorded �Confirmed �Type
allopurinol 100 mg tablet 100 mg PO BID Gout 02/11/11 10/23/24 History
simvastatin 40 mg tablet 40 mg PO QPM High cholesterol 02/11/11 10/23/24 History
aspirin 81 mg chewable tablet 81 mg PO MOWEFR@1800 Blood Clot 10/23/24 10/23/24 History
Prevention/Tx
carvedilol 6.25 mg tablet 6.25 mg PO BID Heart 10/23/24 10/23/24 History
Disease/Condition
cholecalciferol (vitamin D3) 25 25 mcg PO DAILY Supplement 10/23/24 10/23/24 History
mcg (1,000 unit) tablet (Vitamin
D3)
empagliflozin 10 mg tablet 10 mg PO DAILY Diabetes 10/23/24 10/23/24 History
(Jardiance)
hydralazine 10 mg tablet 10 mg PO TID Blood Pressure 10/23/24 10/23/24 History
isosorbide mononitrate 30 mg 30 mg PO DAILY Heart 10/23/24 10/23/24 History
tablet,extended release 24 hr Disease/Condition
levothyroxine 75 mcg tablet 75 mcg PO DAILY Thyroid 10/23/24 10/23/24 History
metformin 500 mg tablet,extended 500 mg PO TID Diabetes 10/23/24 10/23/24 History
release 24 hr
therapeutic multivitamin 1 tab PO DAILY Supplement 10/23/24 10/23/24 History
vibegron 75 mg tablet (Gemtesa) 75 mg PO DAILY Urinary Issue 10/23/24 10/23/24 History
Review of Systems
-
History Source: Patient and Family (his daughter he lives with and one of his other daughters, he has 6 children)
All other systems: Negative unless noted
Physical Exam
Vital Signs
Temp Pulse Resp BP Pulse Ox
97.8 F 84 16 95/51 98
10/25/24 11:02 10/25/24 11:02 10/25/24 11:02 10/25/24 11:02 10/25/24 11:02
GEN: NAD, AAOx3
HEENT: EOMI, MMM
LUNGS: Laying flat in bed in no respiratory distress, RA, CTA B/L, no wheezes/rales
CV: Reg, S1/S2, no murmur
ABD: soft, BS+, NT, ND
EXT: No clubbing, cyanosis, lesions or edema B/L
NEURO: Gross non-focal
SKIN: Warm, dry and pink. No rash
Lab Results
10/25/24 07:53
10/25/24 07:53
Bcd-G-Vglbakvabqo Pept 22280 pg/ml 10/24/24 05:59
Impression / Plan
-
PCP: Dr. Mock
Cardiology: Dr. OBDULIO Carrillo
Pulm: Dr. Fofana
Impression:
Admitted with fever, sepsis and generalized weakness 10/23/24
Sepsis
Weakness
Peripheral neuropathy
ICM EF was 37% by echo 09/02/23 and now 30%
CAD s/p CABG with MANZANO to LAD and SVG to OM
cLBBB
HTN
Hyperlipidemia
Hypokalemia
Echo 09/02/2023: EF 37%, basal inferolateral akinesis, mild MR, mild aortic regurgitation
Echo 10/24/2024: EF 30%, global hypokinesis, reduced RV systolic function, mild MR, trace aortic regurgitation, mild TR
Plan:
-Patient came to ER on Wednesday after a fall at home and fever and cardiology is now consulted for an abnormal echo. Patient lives at home with his daughter and he started to feel unwell beginning on the Wednesday after Thanksgi. He felt
increasingly unwell on Wednesday and then Wednesday was weaker than usual and had trouble getting up and moving around on his own. He had started with a fever and had a temperature up to 103 �F at home. On Wednesday he had a fall at home and was unable
to get up on his own, the fall was unwitnessed but no reports of syncope. The patient does not normally have a fever and is normally very sharp and despite his chronic peripheral neuropathy is independent with ADLs. His family brought him to ER
and he was febrile and was admitted. His WBC count was elevated on admission, but CXR was unremarkable. He had a CT of the head that was unremarkable. A follow-up CT of the chest was performed yesterday and again no acute disease of the chest.
For an unknown reason his proBNP level was checked and was 22,000 without reports of shortness of breath or edema. Repeat echo was performed yesterday and his EF that was previously closer to 37% was reduced at 30%. Patient has a known ischemic
cardiomyopathy with a history of CABG. He is currently laying supine in bed without any dyspnea. He says overall he feels better following antibiotics since admission and feels much clear mentally today.
-ECG reviewed by me shows chronic LBBB.
-pr-BNP was 66772 on admission, but no evidence of CHF on physical exam or CXR and CT chest. Patient is comfortable supine in bed now. Doubt acute HF and suspect BNP elevation could be due to sepsis.
-Outpatient dose of Coreg 6.25 mg BID has been continued
-Outpatient dose of Jardiance 10 mg daily should be resumed, order placed by me
-Patient is not chronically on JOSHUA/ARB/ARNI due to history of hyperkalemia with these medications in the past. Patient is chronically on a regimen of Imdur ER 30 mg daily and hydralazine 10 mg TID and recommend resuming those medications once BP
improves.
-Interestingly, patient noted to be hypokalemic with a potassium 3.4 today. Will give KCl 40M EQ x 1 now and recheck BMP in the morning, all ordered by me.
-Blood and urine cultures without growth at 24 hours and patient reports symptomatic improvement with antibiotics
-Patient is already scheduled to see Dr. Carrillo in the office on 12/14/2024 and we will keep this appointment.
[2024-10-25 16:50] LABS: NT-proBNP > 27000 pg/ml
[2024-10-25 17:04] LABS: Glucose - Point of Care 145 mg/dl (70-99)
[2024-10-25] MEDS: LIPITOR 10 MG PO (17:15)
[2024-10-25] MEDS: KCL 40 MEQ PO (17:15)
[2024-10-25] MEDS: LOW STRENGTH ASPIRIN 81 MG PO (17:16)
[2024-10-25] MEDS: COREG PO (20:12)
[2024-10-25 21:17] LABS: Glucose - Point of Care 227 mg/dl (70-99)
[2024-10-25] MEDS: MELATONIN 3 MG PO (23:27)
[2024-10-26] MEDS: ZOSYN 100 IV ×2 (03:34→09:40)
[2024-10-26 04:00] VITALS: BP 126/73
[2024-10-26] MEDS: SYNTHROID 75 MCG PO (05:39)
[2024-10-26 06:00] VITALS: BMI 24.5
[2024-10-26 07:45] LABS: Glucose - Point of Care 170 mg/dl (70-99)
[2024-10-26] MEDS: NOVOLOG FLEXPEN-LOW RESISTANCE 1 UNITS SC (07:54)
[2024-10-26] MEDS: FARXIGA 10 MG PO (07:56)
[2024-10-26] MEDS: COREG 6.25 MG PO (07:56)
[2024-10-26] MEDS: ZYLOPRIM 100 MG PO (07:56)
[2024-10-26] MEDS: HEPARIN 5000 UNITS SC (07:58)
[2024-10-26 08:56] VITALS: BP 113/69
[2024-10-26 09:19] LABS: Hematocrit 43.5 % (39.0-52.0); Hemoglobin 14.8 g/dL (13.0-18.0); Mean Corpuscular Hgb 30.9 pg (27.0-31.0); Mean Corpuscular Volume 90.8 fL (80.0-94.0); Mean Platelet Volume 10.1 fL (7.4-10.4); Platelet Count 149 10^3/uL (130-400); Red Blood Cell Count 4.79 10^6/uL (4.70-6.10); White Blood Cell Count 8.1 10^3/uL (4.8-10.8)
[2024-10-26] MEDS: STERILE WATER FOR INJECTION IV (09:48)
[2024-10-26 09:53] LABS: ALT (SGPT) 40 U/L (0-50); AST (SGOT) 41 U/L (17-59); Albumin 3.5 g/dl (3.5-5.0); Alkaline Phosphatase 70 U/L (38-126); Blood Urea Nitrogen 31 mg/dl (9-20); Calcium 8.9 mg/dl (8.4-10.2); Carbon Dioxide 23 mmol/L (22-30); Chloride 97 mmol/L (98-107); Estimated Creatinine Clearance 36 ml/min; Glucose 177 mg/dl (70-99); Magnesium 2.2 mg/dl (1.6-2.3); Potassium 4.1 mmol/L (3.5-5.1); Sodium 132 mmol/L (135-145); Total Bilirubin 0.5 mg/dl (0.2-1.3); Total Protein 5.8 g/dl (6.3-8.2); eGFR 48.65
[2024-10-26 10:53] VITALS: BP 103/55; BP 103/60; BP 97/52; PULSE 73; PULSE 74
[2024-10-26 12:10] VITALS: BP 108/57
[2024-10-26 12:19] LABS: Glucose - Point of Care 232 mg/dl (70-99)
[2024-10-26] MEDS: NOVOLOG FLEXPEN-LOW RESISTANCE 2 UNITS SC (12:23)
--- NOTE | 2024-10-26 12:44 | W.PN.HOSP.TC ---
Addendum entered and electronically signed by Jaiden Zarco MD 10/26/24 16:22:
[id number]
Original Note:
Today's Communication/Plan
-
Restart hydralazine, Farxiga
Hold Imdur until blood pressure stabilizes and can follow-up outpatient
Follow-up BMP outpatient in 3 to 5 days monitoring sodium and serum creatinine
Stop ibuprofen
Can complete 7-day course of antibiotics
Outpatient PT
Assessment / Plan
Assessment / Plan
Physical Exam
General: Other (88y M in no acute distress albeit confused)
HEENT: Moist mucous membranes and PERRLA
Respiratory: Other (bibasilar rales about 1/3 up. No wheeze / rhonchi.)
Cardiac: S1/S2, Regular Rhythm and Murmur (II/ ZEUS)
GI: Soft, Non Tender, Non Distended and Normal Bowel Sounds
Musculoskeletal: No Clubbing, No Cyanosis and No Edema
Neuro: Awake, Alert and Nonfocal/grossly intact
A/P: Patient is an 88y M with PMH significant for ASCVD, DM-II and pulmonary fibrosis who presents to ED complaining of fever and weakness.
Sepsis
-unclear etiology, possibly viral
- switch to cefdinir to complete 7 day course of abx empirically
-CT chest without evidence of infectious etiology
-F/u blood cultures,
� Urine cultures negative
Weakness
Acute metabolic encephalopathy, resolved
� Most likely secondary to viral illness�now resolved
� Continue to monitor with resuscitation
� Head CT unremarkable
- outpt pt
Ambulatory Dysfunction
Peripheral Neuropathy
- Patient with ongoing issues with gait dysfunction due to RLE weakness / chronic atrophy and neuropathy.
- These issues exacerbated by acute illness / fever - ? viral syndrome.
- PT / OT evaluations. - outpt pt
- Follow for any new / worsening symptoms.
ASCVD
Ischemic Cardiomyopathy
Acute HFrEF
� Required IV Lasix on admission - no longer needed
� Echo with EF of 30%
� Cardiology consulted - ntd a tthis time
- Continue current CV med regimen.
- Follow I/Os, daily weights, etc.
-Restarted Farxiga and Hydralazine on DC; hold Imdur until PCP f/u to ensure BP can tolerate
Hyponatremia, improved
-most likely SIADH
-free water restriction
-improved
-f/u bmp outpt
Pulmonary Fibrosis
- Rales on exam c/w fibrosis. CXR with no acute pathology.
- Not hypoxemic.
- Patient reports chronic dyspnea, but no acute change in symptoms.
- Follow for any changes.
DM-II with Severe Peripheral Neuropathy
- Stable. Hold PO medications acutely including Jardiance and Metformin.
- SSI coverage for now if needed.
- Update A1C.�6.8
Hypothyroidism
- Continue current T4 dose for now.
- Update TFTs.
Solitary Kidney
- s/p R nephrectomy for benign tumor.
- F/u Scr outpatient
- Follow for changes / return to baseline.
-nephrotoxic agents
DVT Prophylaxis: Subcut Heparin
Code Status: Full
More than 30 minutes spent in discharge including
Final examination of the patient
Summarizing hospital stay
Instructions for continuing care to all relevant caregivers
Preparation of discharge records, prescriptions, and referral forms
Total time spent (36 in minutes):
Anticipated Discharge: Today
Subjective/Interval History
-
Date of Service: October 26, 2024
No acute events overnight, doing well
Objective Data
-
Labs:
Laboratory Results
10/26/24
08:52
WBC 8.1
Hgb 14.8
Hct 43.5
Plt Count 149
Sodium 132 L
Potassium 4.1
Chloride 97 L
Carbon Dioxide 23
BUN 31 H
Creatinine 1.4 H
Glucose 177 H
Calcium 8.9
Total Bilirubin 0.5
AST 41
ALT 40
Alkaline Phosphatase 70
Vital Signs:
Vital Signs
Temp Pulse Resp BP Pulse Ox
98.1 F 75 18 108/57 97
10/26/24 12:10 10/26/24 12:10 10/26/24 12:10 10/26/24 12:10 10/26/24 12:10
I&O
10/25/24 10/26/24 10/27/24
06:59 06:59 06:59
Intake Total 1820 / 1820 1080 / 1080
Output Total 475 / 475
Balance 1345 / 1345 1080 / 1080
Review of Systems
-
History Source: Patient
All other systems: Not reviewed unless documented
Data Reviewed
-
Diagnostic Radiology: Report Reviewed by me
CT Scan: Report Reviewed by me
Labs: Labs Reviewed by me
--- NOTE | 2024-10-26 12:48 | W.DS.TRANS ---
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
-
Discharge Instructions:
Discharge Diagnosis/Procedures Sepsis
-unclear etiology, possibly viral
Acute metabolic encephalopathy�most likely
secondary to viral illness
Diet Low Cholesterol,Low Fat,Restrict fluids to 48 oz
Activity As tolerated
Blood Work cbc and bmp in 3-5 days with PCP. Monitor CBC
and Sodium levels
Instructions:
Stand-Alone Forms:
Changes to Home Medications: Yes
Discharge Medications:
DC Medications w/original date entered in [facility]
allopurinol 100 mg tablet 100 mg PO BID Gout 02/11/11
simvastatin 40 mg tablet 40 mg PO QPM High cholesterol 02/11/11
aspirin 81 mg chewable tablet 81 mg PO MOWEFR@1800 Blood Clot Prevention/Tx 10/23/24
carvedilol 6.25 mg tablet 6.25 mg PO BID Heart Disease/Condition 10/23/24
cholecalciferol (vitamin D3) 25 mcg (1,000 unit) tablet (Vitamin D3) 25 mcg PO DAILY Supplement 10/23/24
empagliflozin 10 mg tablet (Jardiance) 10 mg PO DAILY Diabetes 10/23/24
hydralazine 10 mg tablet 10 mg PO TID Blood Pressure 10/23/24
isosorbide mononitrate 30 mg tablet,extended release 24 hr 30 mg PO DAILY Heart Disease/Condition 10/23/24
levothyroxine 75 mcg tablet 75 mcg PO DAILY Thyroid 10/23/24
metformin 500 mg tablet,extended release 24 hr 500 mg PO TID Diabetes 10/23/24
therapeutic multivitamin 1 tab PO DAILY Supplement 10/23/24
vibegron 75 mg tablet (Gemtesa) 75 mg PO DAILY Urinary Issue 10/23/24
cefdinir 300 mg capsule 300 mg PO BID 5 days #10 caps 10/26/24
Home Medication Changes
cefdinir 300 mg capsule 300 mg PO BID 5 days #10 caps 10/26/24
Pending Results: No
[2024-10-26 14:13] VITALS: BP 95/44; PULSE 78
--- NOTE | 2024-10-26 14:21 | CM ---
CM met with patients daughterConcha, in the hallway. Patients daughter very tearful, reports she is concerned about bringing patient home. CM reviewed PT recommendation, patient ambulated 200 feet, recommending outpatient PT. Daughter reports she
is one of six children and does have support from her siblings. Daughter reports she resides with her father. Patient then seen bedside with daughter, script for outpatient PT provided in chart. Patient reports he is current with outpatient therapy.
Daughter nervous regarding patient discharging home as there are steps to enter, steps up stairs, request for PT to work with patient prior to discharge. Patient agreeable to discharge home, IMM reviewed, signed, placed in chart, provided with copy.
CM will continue to follow for all discharge planning needs.
Plan; home with daughter, script for outpatient PT in chart.
== END 2024-10-26 16:17 | disposition home or self-care (01) | DRG 871 ==
LOC: 4 WEST ACU 01:23
PROVIDERS: Emergency Medicine; ADMITTING PHYSICIAN Hospitalist; ATTENDING PHYSICIAN Internal Medicine; CONSULT PHYSICIAN Internal Medicine Cardiovascular Disease; EMERGENCY PHYSICIAN Student in an Organized Health Care Education/Training Program; FAMILY PHYSICIAN Family Medicine
DX: A41.9 Sepsis, unspecified organism (principal); G93.41 Metabolic encephalopathy; I50.21 Acute systolic (congestive) heart failure; E22.2 Syndrome of inappropriate secretion of antidiuretic hormone; E87.1 Hypo-osmolality and hyponatremia; Z87.891 Personal history of nicotine dependence; Z11.52 Encounter for screening for COVID-19; J84.10 Pulmonary fibrosis, unspecified; I25.10 Atherosclerotic heart disease of native coronary artery without angina pectoris; I25.5 Ischemic cardiomyopathy; E03.9 Hypothyroidism, unspecified; Z79.84 Long term (current) use of oral hypoglycemic drugs; E11.40 Type 2 diabetes mellitus with diabetic neuropathy, unspecified
CPT/HCPCS: 70450; 71046; 71260; 80048; 80053; 81003; 81015; 82962; 83036; 83605; 83735; 83880; 83935; 84300; 84443; 85025; 85027; 87040; 87086; 87502; 87641; 87811; 93005; 93306; 96361; 96365; 97116; 97162; 97166; 97530; 99285; Q9967

== ENCOUNTER → 2024-11-02 11:21 | Outpatient (REF) | payer MEDICARE, OTHER, SELFPAY ==
[2024-11-02 12:38] LABS: % Basophils 0.6 % (0-2); % Eosinophils 6.8 % (0-6); % Immature Granulocytes 1.6 % (0-0.5); % Lymphocytes 17.6 % (20.5-51.1); % Neutrophils 56.4 % (42.2-75.2); Absolute Eosinophils 0.5 10^3/uL (0-0.7); Absolute Immature Granulocytes 0.1 10^3/uL (0-0.05); Absolute Lymphocytes 1.2 10^3/uL (1.2-3.4); Absolute Monocytes 1.2 10^3/uL (0.1-0.6); Absolute Neutrophils 3.9 10^3/uL (1.4-6.5); Hematocrit 41.5 % (39.0-52.0); Mean Corp Hgb Conc. 33.7 g/dL (33.0-37.0); Mean Corpuscular Hgb 30.8 pg (27.0-31.0); Mean Corpuscular Volume 91.2 fL (80.0-94.0); Mean Platelet Volume 9.2 fL (7.4-10.4); Nucleated Red Blood Cells % 0 % (-); Platelet Count 247 10^3/uL (130-400); Red Blood Cell Count 4.55 10^6/uL (4.70-6.10); Red Cell Dist. Width 16.6 % (11.5-14.5); White Blood Cell Count 6.9 10^3/uL (4.8-10.8)
[2024-11-02 13:32] LABS: Blood Urea Nitrogen 28 mg/dl (9-20); Calcium 9.7 mg/dl (8.4-10.2); Carbon Dioxide 28 mmol/L (22-30); Chloride 99 mmol/L (98-107); Glucose 164 mg/dl (70-99); Sodium 135 mmol/L (135-145); eGFR > 60.00
== END ==
LOC: REG 11:21
PROVIDERS: ATTENDING PHYSICIAN Student in an Organized Health Care Education/Training Program
DX: R21 Rash and other nonspecific skin eruption (principal)
CPT/HCPCS: 36415; 80048; 85025

== ENCOUNTER → 2025-01-17 07:05 | Outpatient (REF) | payer MEDICARE, OTHER, SELFPAY | LOC: HWRCS 07:05 | PROVIDERS: ATTENDING PHYSICIAN Internal Medicine Cardiovascular Disease; FAMILY PHYSICIAN Family Medicine | DX: I25.10 Atherosclerotic heart disease of native coronary artery without angina pectoris (principal); I42.8 Other cardiomyopathies; I44.7 Left bundle-branch block, unspecified | CPT/HCPCS: 78452; 93017; A9500; J2785 ==

== ENCOUNTER → 2025-04-09 09:29 | Outpatient (REF) | payer MEDICARE, OTHER, SELFPAY ==
[2025-04-09 11:17] LABS: ALT (SGPT) 20 U/L (0-50); AST (SGOT) 24 U/L (17-59); Albumin 4.5 g/dl (3.5-5.0); Alkaline Phosphatase 54 U/L (38-126); Blood Urea Nitrogen 34 mg/dl (9-20); Calcium 10.7 mg/dl (8.4-10.2); Carbon Dioxide 25 mmol/L (22-30); Chloride 108 mmol/L (98-107); Glucose 134 mg/dl (70-99); HDL Cholesterol 48 mg/dl; LDL Cholesterol, Calculated 54 mg/dl; NT-proBNP 912 pg/ml; Potassium 4.9 mmol/L (3.5-5.1); Sodium 141 mmol/L (135-145); Total Bilirubin 0.5 mg/dl (0.2-1.3); Total Cholesterol 141 mg/dl (50-199); Total Protein 7.2 g/dl (6.3-8.2); Triglyceride 199 mg/dl (10-149); Very Low Density Lipoprotein 39 mg/dl (0-30); eGFR > 60.00
== END ==
LOC: REG 09:29
PROVIDERS: ATTENDING PHYSICIAN Internal Medicine Cardiovascular Disease; FAMILY PHYSICIAN Family Medicine
DX: I10 Essential (primary) hypertension (principal); E78.00 Pure hypercholesterolemia, unspecified
CPT/HCPCS: 36415; 80053; 80061; 83880

== ENCOUNTER → 2025-04-25 07:29 | Outpatient (REF) | payer MEDICARE, OTHER, SELFPAY | LOC: RCS 07:29 | PROVIDERS: ATTENDING PHYSICIAN Internal Medicine Cardiovascular Disease; FAMILY PHYSICIAN Family Medicine | DX: I25.10 Atherosclerotic heart disease of native coronary artery without angina pectoris (principal) | CPT/HCPCS: 93306 ==

== ENCOUNTER 2025-07-16 21:55 | Emergency (ER) | payer MEDICARE, OTHER, SELFPAY ==
[2025-07-16 22:11] VITALS: BP 124/55
[2025-07-16 23:14] VITALS: BMI 25.7
[2025-07-16 23:16] VITALS: BP 132/46
[2025-07-16 23:19] VITALS: BP 132/46
[2025-07-17] VITALS: BP 114/66
--- NOTE | 2025-07-17 00:09 | ED.GENMED ---
History of Present Illness
General
Chief Complaint: Fall
Source: patient and family
Exam Limitations: none
Time Seen by Provider: 07/16/25 23:08
History of Present Illness
History of Present Illness:
Patient tripped and fell off a curb hitting his head. Also abrasions to his elbows. No loss of consciousness. No syncope. No other complaints. Initially seemed slightly confused but this has resolved
Past History
Past History
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
ED Past Surgical History: Cardiac (Coronary bypass graft), Orthopedic (Right shoulder surgery, bilateral rotator cuff repair, leg surgery), Urological (Right nephrectomy due to benign mass) and Other (Adrenal tumor removed, )
Social History
Tobacco: Former smoker
Alcohol: None
Drug: None
Personal:
Living: with family
Family History
Family History: Other (Reviewed and noncontributory)
Review of Systems
Review of Systems
All Other Systems: Not applicable
Respiratory: Reports no symptoms
Cardiac: Reports no symptoms
Phy Exam
Physical Exam
Physical Exam:
TRAUMA EXAM:
VITAL SIGNS: Vital signs reviewed, cooperative
DISTRESS: No active disease
EYES: Pupils reactive, no orbital trauma
NOSE: No deformity or epistaxis
FACE AND SCALP: No scalp or facial trauma, external canals no blood
NECK: Supple nontender
BACK: Back nontender, pelvis stable to compression
RESPIRATORY: No distress, breath sounds normal, no tender chest wall
CARDIAC: No murmur, pulses equal and strong
ABDOMEN: Soft nontender bowel sounds normal
SKIN: Very superficial abrasion of the right elbow
EXTREMITIES: Nontender
NEUROLOGICAL: Alert, oriented, no motor deficits
PSYCH: Mood affect normal
Course
Orders/Labs/Results
Orders:
Orders
07/16/25 22:15
CT Head W/o Iv Contrast Urgent
Comment:
Reason For Exam: head strike, amnesia
07/16/25 22:21
Cervical Spine wo Contrast CT [CT Cervical Spine W/o Iv Contr] Urgent
Comment:
Reason For Exam: fall
Vital Signs
Initial and Last Documented VS:
Initial Vital Signs
Temp Pulse Resp BP Pulse Ox
98.5 F 68 16 124/55 97
07/16/25 22:11 07/16/25 22:11 07/16/25 22:11 07/16/25 22:11 07/16/25 22:11
Last Documented Vital Signs
Temp Pulse Resp BP Pulse Ox
98.5 F 66 18 114/66 94
07/16/25 22:11 07/16/25 23:19 07/16/25 23:19 07/17/25 00:00 07/17/25 00:00
MDM/Problems Addressed
Differential Diagnosis Includes:
Patient not describing a syncopal episode. Niccoli stable. Minor neurologic cognitive issues resolved. Head CT negative. Discharged to follow-up
*Radiology
Radiology exam reviewed: radiology read reviewed (Negative)
*Pulse Oximetry
SaO2: 94
Oxygen Mode of Delivery: Room air
Patient hypoxic: no
*Critical Care Note
Total Time (30-74mins, 75-104mins- exclusive of procedures): Not Applicable
ED Attending Note
-
Portions of this chart may have been created with voice recognition software.� Occasional wrong word or��sound alike� substitutions may have occurred due to the inherent limitations of voice recognition software.
Discharge Plan
Departure
Patient Disposition: Home (Routine Discharge)
Date of Disposition: 07/17/25
Time of Disposition: 00:11
Patient with high blood pressure during this ER visit?: No
Discharge Problem:
Closed head injury, Abrasions
Instructions: Head Injury in Adults (DC), Skin Abrasions (DC)
Prescriptions:
No Action
allopurinol 100 MG tablet
100 mg PO BID
simvastatin 40 MG tablet
40 mg PO QPM
hydralazine 10 mg Tablet
10 mg PO TID
carvedilol 6.25 mg Tablet
6.25 mg PO BID
isosorbide mononitrate 30 mg Tablet Extended Release 24 Hr
30 mg PO DAILY
therapeutic multivitamin Tablet
1 tab PO DAILY
levothyroxine 75 mcg Tablet
75 mcg PO DAILY
metformin 500 mg Tablet Extended Release 24 Hr
500 mg PO TID
cholecalciferol (vitamin D3) [Vitamin D3] 25 mcg (1,000 unit) Tablet
25 mcg PO DAILY
Jardiance 10 mg Tablet
10 mg PO DAILY
Gemtesa 75 mg Tablet
75 mg PO DAILY
aspirin 81 mg tablet,chewable
81 mg PO MOWEFR@1800
cefdinir 300 mg capsule
300 mg PO BID 5 Days Qty: 10 0RF
Referrals:
Tyesha Mock DO [Family Provider, Family Practice] - Follow up in 2-3 days
Interventions
Interventions:
*Risk Screen - Suicide Last Done: 07/16/25 23:20
*General Assessment Last Done: 07/16/25 23:16
*Neglect/Abuse Screening Last Done: 07/16/25 23:16
*ED- Fall Risk Assessment Last Done: 07/16/25 23:16
*ED COVID-19 Vaccine History Last Done: 07/16/25 23:16
ED-Musculoskeletal Assessment Last Done: 07/16/25 23:20
ED- Neurological Assessment Last Done: 07/16/25 23:20
ED-Skin Assessment Last Done: 07/16/25 23:20
Discharge Date and Time
Print Language: DOMINICAN
== END 2025-07-17 00:25 | disposition home or self-care (01) ==
LOC: EMR 21:55
PROVIDERS: EMERGENCY PHYSICIAN Emergency Medicine; FAMILY PHYSICIAN Family Medicine
DX: S09.90XA Unspecified injury of head, initial encounter (principal); S50.311A Abrasion of right elbow, initial encounter; W10.1XXA Fall (on)(from) sidewalk curb, initial encounter; E03.9 Hypothyroidism, unspecified; E78.00 Pure hypercholesterolemia, unspecified; E11.9 Type 2 diabetes mellitus without complications; G47.33 Obstructive sleep apnea (adult) (pediatric); I10 Essential (primary) hypertension; I25.10 Atherosclerotic heart disease of native coronary artery without angina pectoris; Z87.891 Personal history of nicotine dependence; Z95.1 Presence of aortocoronary bypass graft
CPT/HCPCS: 99284; 70450; 72125

== ENCOUNTER → 2025-07-26 15:10 | Outpatient (REF) | payer MEDICARE, OTHER, SELFPAY | LOC: RAD 15:10 | PROVIDERS: ATTENDING PHYSICIAN Family Medicine | DX: I65.23 Occlusion and stenosis of bilateral carotid arteries (principal) | CPT/HCPCS: 93880 ==